=== PATIENT | female | born 1990 ===

== ENCOUNTER 2018-02-06 14:55 | Emergency (ER) | payer BC ==
[2018-02-06] MEDS ORDERED: Sodium Chloride 0.9% 1,000 ML IV ONE (15:46)
[2018-02-06 15:53] LABS: BASO % 0.3 % (0.0-2.0); EOS % 0.4 % (0.0-4.0); LYMPH # 0.9 K/uL (1.0-4.3); LYMPH % 10.3 % (20.0-40.0); MEAN CELL VOLUME 96.4 fL (81.0-99.0); MEAN CORPUSCULAR HEMOGLOBIN 32.9 pg (27.0-31.0); MEAN CORPUSCULAR HGB CONC 34.1 g/dL (33.0-37.0); MEAN PLATELET VOLUME 8.3 fL (7.2-11.7); MONO # 0.3 K/uL (0.0-0.8); MONO % 3.7 % (0.0-10.0); NEUT # 7.8 K/uL (1.8-7.0); NEUT % 85.3 % (50.0-75.0); RBC 4.86 Mil/uL (3.80-5.20); RED CELL DISTRIBUTION WIDTH 13.4 % (11.5-14.5); WHITE BLOOD COUNT 9.1 K/uL (4.8-10.8)
[2018-02-06 15:56] LABS: SQUAMOUS EPITHIAL 7 /hpf (0-5); URINE BACTERIA RARE (<OCC); URINE BILIRUBIN NEGATIVE (NEGATIVE); URINE BLOOD 1+ (NEGATIVE); URINE CLARITY Hazy (Clear); URINE COLOR Yellow (YELLOW); URINE GLUCOSE (UA) NORMAL (Normal); URINE LEUKOCYTE ESTERASE 1+ Leu/uL (Negative); URINE PROTEIN NEGATIVE (NEGATIVE); URINE UROBILINOGEN NORMAL mg/dL (0.2-1.0)
--- NOTE | 2018-02-06 15:58 | C.PDOC ---
History Of Present Illness 27 year old female presents to the emergency department with complaints of epigastric abdominal pain, non-bloody vomiting, and diarrhea which began yesterday status-post eating tacos. Patient denies fever, chills, alcohol use, vaginal bleeding, vaginal discharge, or dysuria. Time Seen by Provider: 02/06/18 15:29 Chief Complaint (Nursing): Abdominal Pain History Per: Patient History/Exam Limitations: no limitations Onset/Duration Of Symptoms: Days (1) Current Symptoms Are (Timing): Still Present Location Of Pain/Discomfort: Epigastric Quality Of Discomfort: "Pain" Associated Symptoms: Nausea, Vomiting, Diarrhea. denies: Fever, Chills, Urinary Symptoms, Other (vaginal bleeding, vaginal discharge) Abnormal Vaginal Bleeding: Yes Past Medical History Reviewed: Historical Data, Nursing Documentation, Vital Signs - Medical History PMH: No Chronic Diseases Surgical History: No Surg Hx Family History: States: No Known Family Hx - Social History Hx Alcohol Use: No Hx Substance Use: No - Immunization History Hx Tetanus Toxoid Vaccination: No Hx Influenza Vaccination: No Hx Pneumococcal Vaccination: No Review Of Systems Except As Marked, All Systems Reviewed And Found Negative. Gastrointestinal: Positive for: Nausea, Vomiting, Abdominal Pain, Diarrhea Physical Exam - Physical Exam Appears: Non-toxic, No Acute Distress Skin: Normal Color, Warm, Dry Head: Atraumatic, Normacephalic Eye(s): bilateral: Normal Inspection, PERRL, EOMI Nose: Normal Oral Mucosa: Moist Neck: Normal, Supple Chest: Symmetrical, No Tenderness Cardiovascular: Rhythm Regular, No Murmur Respiratory: Normal Breath Sounds, No Rales, No Rhonchi, No Wheezing Gastrointestinal/Abdominal: Soft, Tenderness (epigastric tenderness), No Guarding, No Rebound Extremity: Bilateral: Atraumatic, Normal Color And Temperature, Normal ROM Neurological/Psych: Oriented x3, Normal Speech ED Course And Treatment - Laboratory Results Result Diagrams: 02/06/18 15:48 02/06/18 15:48 - Other Rad XR Obstructive Series X-Ray: Viewed By Me, Read By Radiologist Interpretation: IMPRESSION: Unremarkable radiographs of chest and abdomen. No evidence of mechanical bowel obstruction. Medical Decision Making Medical Decision Making: Plan: Chemistry CBC XR Obstructive Series Pepcid 20mg IVP NaCl IV Fluids Toradol 30mg IVP Zofran 4mg IVP POC Urine Urinalysis Assessment: Abdominal Pain Disposition Counseled Patient/Family Regarding: Studies Performed, Diagnosis, Need For Followup, Rx Given - Disposition Disposition: HOME/ ROUTINE Disposition Time: 16:39 Condition: STABLE Additional Instructions: follow up with your doctor within 2 days call to make an appointment return to ER if symptoms worsens or progress take medications as prescribed Prescriptions: Famotidine [Pepcid] 20 mg PO BID #20 tab Ondansetron ODT [Zofran ODT] 4 mg PO TID PRN #12 odt PRN Reason: Nausea/Vomiting Instructions: Diarrhea in Adolescents and Adults, Nausea and Vomiting, Adult (DC) Forms: General Discharge Instructions, [facility] (Azerbaijani), Work Excuse - Clinical Impression Clinical Impression: Vomiting, Diarrhea - Scribe Statement The provider has reviewed the documentation as recorded by the Scribe (Darius Solano) Provider Attestation: All medical record entries made by the Scribe were at my direction and personally dictated by me. I have reviewed the chart and agree that the record accurately reflects my personal performance of the history, physical exam, medical decision making, and the department course for this patient. I have also personally directed, reviewed, and agree with the discharge instructions and disposition.
[2018-02-06] MEDS ORDERED: Sodium Chloride 0.9% 1,000 ML ONE (16:05)
[2018-02-06 16:11] LABS: ALB/GLOB RATIO 1.4 (1.0-2.1); ALBUMIN 4.5 g/dL (3.5-5.0); ALT/SGPT 15 U/L (9-52); AST/SGOT 23 U/L (14-36); BLOOD UREA NITROGEN 14 mg/dL (7-17); CALCIUM 9.1 mg/dl (8.6-10.4); GFR NON-AFRICAN AMERICAN > 60; LIPASE 85 U/L (23-300)
--- NOTE | 2018-02-06 16:47 | RAD ---
Date of service: 02/06/2018 PROCEDURE: Radiographs of the chest and abdomen (obstructive series) HISTORY: abd. pain COMPARISON: No prior. TECHNIQUE: AP radiograph of the chest, with upright and supine radiographs of the abdomen. FINDINGS: CHEST: Lungs: Clear. Cardiovascular: Normal size heart. No pulmonary vascular congestion. No aortic atherosclerotic calcification present Pleura: No pleural fluid. No pneumothorax. Other findings: None. ABDOMEN AND PELVIS: Bowel: Unremarkable bowel gas pattern. No evidence of mechanical obstruction. Free air: None. Bones: Unremarkable. Other findings: None. IMPRESSION: Unremarkable radiographs of chest and abdomen. No evidence of mechanical bowel obstruction.
[2018-02-06 17:02] VITALS: BP 97/59; PULSE 58; RESP 17; TEMP 99; O2SAT 99
== END 2018-02-06 17:13 | disposition home or self-care (01) ==
LOC: C.ER 14:55
DX: R11.2 Nausea with vomiting, unspecified (principal); R19.7 Diarrhea, unspecified
CPT/HCPCS: 74022; 80053; 81001; 83690; 85025; 96361; 96374; 96375; 99285; J1885; J2405; J7030